=== PATIENT | female | born 1990 | race Caucasian/White ===

== ENCOUNTER 2016-07-15 04:06 | Inpatient (IN) | payer BC ==
[2016-07-15] VITALS (22 sets, daily range): BP systolic 103–135; BP diastolic 52–79; PULSE 78–101; TEMP 98.1–99.8
[~2016-07-15] VITALS: Ht 172.7 cm; Wt 95.5 kg
[2016-07-15] MEDS ORDERED: PRENATAL MVI (04:42)
[2016-07-15 07:17] LABS: BASO # 0.1 (0.0-0.2); BASO % 0.4 % (0.0-2.0); GRAN # 14.5 (1.4-6.5); GRAN % 88.3 % (42.2-75.2); LYMPH % 6.3 % (20.0-51.0); MEAN CELL VOLUME 87 fl (80.0-100.0); MEAN CORPUSCULAR HGB CONC 34 g/dl (33.0-37.0); MEAN PLATELET VOLUME 10.7 fl (7.4-10.4); MONO # 0.8 (0.1-0.6); MONO % 4.6 % (1.7-9.3); PLATELET COUNT 244 K/mm3 (130-400); RED BLOOD COUNT 3.64 M/mm3 (4.10-5.30); REDCELL DISTRIBUTION WIDTH-CV 12.6 % (11.5-14.5); WHITE BLOOD COUNT 16.4 K/mm3 (4.8-10.8)
[2016-07-15 07:25] LABS: HEMATOCRIT 31.6 % (37.0-47.0); HEMOGLOBIN 10.6 g/dl (12.5-16.0); MEAN CORPUSCULAR HEMOGLOBIN 29 pg (27.0-31.0)
[2016-07-15 08:05] LABS: PH 7 (5-8); SQUAMOUS EPITHELIAL 0-2 /hpf; URINE APPEARANCE Clear; URINE BACTERIA None Seen /hpf; URINE BILIRUBIN Negative (NEGATIVE); URINE BLOOD Negative (NEGATIVE); URINE COLOR Yellow; URINE GLUCOSE Negative (NEGATIVE); URINE KETONE Negative (NEGATIVE); URINE RBC 0-2 /hpf; URINE UROBILINOGEN Negative (NEGATIVE); URINE WBC 0-2 /hpf
[2016-07-16 02:00] VITALS: BP 102/53; PULSE 85; TEMP 99
[2016-07-16 07:25] VITALS: BP 110/73; PULSE 83; TEMP 97.9
[2016-07-16 07:42] LABS: BASO % 0.4 % (0.0-2.0); EOS % 0.4 % (0-4.0); GRAN # 7.7 (1.4-6.5); GRAN % 79.2 % (42.2-75.2); LYMPH # 1.5 (1.2-3.4); LYMPH % 15.6 % (20.0-51.0); MEAN CELL VOLUME 89 fl (80.0-100.0); MEAN CORPUSCULAR HGB CONC 33 g/dl (33.0-37.0); MONO # 0.4 (0.1-0.6); PLATELET COUNT 223 K/mm3 (130-400); RED BLOOD COUNT 3.34 M/mm3 (4.10-5.30); WHITE BLOOD COUNT 9.7 K/mm3 (4.8-10.8)
[2016-07-16 08:15] LABS: HEMATOCRIT 29.8 % (37.0-47.0); HEMOGLOBIN 9.7 g/dl (12.5-16.0); MEAN CORPUSCULAR HEMOGLOBIN 29 pg (27.0-31.0)
[2016-07-16 16:30] VITALS: BP 117/68; PULSE 83; TEMP 97.5
[2016-07-16 21:00] VITALS: BP 130/73; PULSE 79; TEMP 98.3
[2016-07-17 07:30] VITALS: BP 106/56; PULSE 73; TEMP 98.4
[2016-07-17] MEDS ORDERED: IBU800 M1 PO (08:40)
== END 2016-07-17 14:20 | disposition home or self-care (01) | DRG 775 ==
LOC: LDRO 04:06 → LDR 05:03 → OB 05:03
PROVIDERS: Student in an Organized Health Care Education/Training Program
PROC: 10E0XZZ Delivery of Products of Conception, External Approach (ICD-10-PCS; principal; 2016-07-15)
PROC: 0UQMXZZ Repair Vulva, External Approach (ICD-10-PCS; 2016-07-15)
PROC: 0HQ9XZZ Repair Perineum Skin, External Approach (ICD-10-PCS; 2016-07-15)
DX: O99.824 Streptococcus B carrier state complicating childbirth (principal); O26.843 Uterine size-date discrepancy, third trimester; O22.03 Varicose veins of lower extremity in pregnancy, third trimester; O69.81X0 Labor and delivery complicated by cord around neck, without compression, not applicable or unspecified; O71.82 Other specified trauma to perineum and vulva; O70.0 First degree perineal laceration during delivery; Z3A.37 37 weeks gestation of pregnancy; Z37.0 Single live birth
CPT/HCPCS: J2540; J2590; J2795; J7120

== ENCOUNTER → 2016-07-26 | Outpatient (CLI) | payer BC ==
[~2016-07-26] MED LIST: IBU800 M1 PO; PRENATAL MVI
== END ==
LOC: LAC 13:23 → LDRO 07-31 11:43
DX: Z39.1 Encounter for care and examination of lactating mother (principal); Z71.89 Other specified counseling

== ENCOUNTER 2018-06-01 03:40 | Inpatient (IN) | payer BC ==
[2018-06-01] VITALS (32 sets, daily range): BP systolic 94–134; BP diastolic 52–78; PULSE 69–111; TEMP 97.6–99
[~2018-06-01] VITALS: Ht 172.7 cm; Wt 94.5 kg
--- NOTE | 2018-06-01 03:45 | NUR ---
G2L1. 38-1. Pt to ambulatory to LDR 4 with spouse. Clean gown on. EFM and TOCO explained and applied. Pt states contractions are 5-6minutes apart for about an hour now. Pt states she has been having bloody show for the last day. Denies LOF. Reports good movement. SVE 3-4/80/-3, no bloody show noted to exam glove. Vital signs and assessment completed. Plan of care explained to pt and who verbalize understanding. Will continue to monitor.
[2018-06-01] MEDS ORDERED: TUMS500 MG PO (04:02)
[2018-06-01 06:49] LABS: BASO # 0.1 (0.0-0.2); BASO % 0.7 % (0.0-2.0); EOS # 0.3 (0.0-0.7); EOS % 2.8 % (0-4.0); GRAN # 7.8 (1.4-6.5); GRAN % 71.9 % (42.2-75.2); LYMPH % 18.2 % (20.0-51.0); MEAN CELL VOLUME 89 fl (80.0-100.0); MEAN CORPUSCULAR HEMOGLOBIN 30 pg (27.0-31.0); MEAN CORPUSCULAR HGB CONC 34 g/dl (33.0-37.0); MEAN PLATELET VOLUME 11.4 fl (7.4-10.4); MONO # 0.6 (0.1-0.6); MONO % 5.9 % (1.7-9.3); PLATELET COUNT 249 K/mm3 (130-400); RED BLOOD COUNT 4.01 M/mm3 (4.10-5.30); REDCELL DISTRIBUTION WIDTH-CV 12.1 % (11.5-14.5)
[2018-06-01 06:56] LABS: HEMATOCRIT 35.8 % (37.0-47.0)
--- NOTE | 2018-06-01 07:15 | NUR ---
0715- Pt request to have monitors off so she can ambulate around room. Pt tolerating UCs well. EFM and TOCO off at this time.
--- NOTE | 2018-06-01 09:09 | NUR ---
0909- Dr Hernández at bedside. SVE , AROM, clear fluid noted, no odor. Discussed plan of care, questions answered.
--- NOTE | 2018-06-01 10:00 | NUR ---
0939- Laura.CANDIE Samson at bedside for epidural placement. Pt assisted to sitting on side of bed. O2 sat monitor on and tracing. FHR not tracing due to maternal position. 0953- Test dose, see anesthesia record. 957- Sat probe off, Pt assisted to semi-fowlers with WL. EFM and TOCO adjusted and tracing. RN remains at bedside monitoring VS.
--- NOTE | 2018-06-01 12:13 | NUR ---
1207- Morales out without difficulty. 1208- Dr Hernández at bedside. Pt and room prepped for delivery. Arsen, Nursery RN at bedside. 1212- Pt pushes with UC. 1213- of viable female . Infant placed on mother's abd where dried and stimulated. Tended to by Nursery RN. Cord clamped and cut. Cord blood sample obtained. 1216- Spontaneous delivery of placenta, Pitocin started at 333mls/hr. Fundus massaged to firm by . Perineum intact. Pericare completed. Ice pack on. Clean chux under Pt. Pt repositioned to sitting upright in bed, baby [id number].
--- NOTE | 2018-06-01 15:15 | NUR ---
1515- Pt unable to lift right leg off bed. Straight cath by this RN, 700mls removed. Pericare completed. Peripad and underwear on. Gown changed. Pt tolerated well. 1520- Pt transfers into wheelchair independently using only right leg, RN standby. Pt taken to room. Transfers same way without difficulty. Pt and oriented to room. Call light within reach. Pt instructed to call before getting out of bed, Pt verbalizes understanding.
[2018-06-02 07:30] VITALS: BP 130/79; PULSE 88; TEMP 97.7
[2018-06-02] MEDS ORDERED: IBU600 MG PO (08:56)
[2018-06-02 11:10] VITALS: BP 116/67; PULSE 98; TEMP 98.8
--- NOTE | 2018-06-02 11:10 | NUR ---
Initial visit; Parents thanked Economics Faculty Member for offering congratulations and God's blessings for the of their twin girls.
--- NOTE | 2018-06-02 11:15 | NUR ---
Initial visit; Mom thanked for offering congratulations for the of her daughter. thanked her for choosing [facility].
== END 2018-06-02 15:20 | disposition home or self-care (01) | DRG 807 ==
LOC: LDRO 03:40 → OB 05:10 → LDR 05:10 → OB 15:20
PROVIDERS: Obstetrics & Gynecology; ADMIT Student in an Organized Health Care Education/Training Program
PROC: 10E0XZZ Delivery of Products of Conception, External Approach (ICD-10-PCS; principal; 2018-06-01)
DX: O76 Abnormality in fetal heart rate and rhythm complicating labor and delivery (principal); Z37.0 Single live birth; Z3A.38 38 weeks gestation of pregnancy; O87.4 Varicose veins of lower extremity in the puerperium; O99.824 Streptococcus B carrier state complicating childbirth
CPT/HCPCS: J2540; J2590; J7120

== ENCOUNTER → 2020-05-12 | Outpatient (CLI) | payer BC ==
[~2020-05-12] MED LIST changes: +IBU600 MG PO; +TUMS500 MG PO
== END ==
LOC: ZCOL.LAB 08:00
DX: Z20.828 Contact with and (suspected) exposure to other viral communicable diseases (principal)

== ENCOUNTER 2020-05-13 07:06 | Inpatient (IN) | payer BC ==
[2020-05-13] VITALS (35 sets, daily range): BP systolic 102–134; BP diastolic 53–93; PULSE 68–94; TEMP 97.5–99.2
[~2020-05-13] VITALS: Ht 172.7 cm; Wt 102.3 kg
--- NOTE | 2020-05-13 07:10 | NUR ---
Patient ambulatory to OB floor with at side, for induction of labor. Pt oriented to room and plan of care. Denies feeling many contractions, denies leaking of fluid, denies vaginal bleeding. EFM and TOCO applied, Cat I tracing obtained. IV initiation. Pt educated on pitocin for induction, agrees with plan. IV initiated, consents signed. Denies questions or concerns at this time. at bedside, call light and personal belongings within reach.
[2020-05-13 08:34] LABS: BASO # 0.1 (0.0-0.2); BASO % 0.6 % (0.0-2.0); EOS # 0.3 (0.0-0.7); EOS % 3.8 % (0-4.0); GRAN # 6.5 (1.4-6.5); GRAN % 72.9 % (42.2-75.2); HEMOGLOBIN 12.2 g/dl (12.5-16.0); LYMPH # 1.5 (1.2-3.4); LYMPH % 17.1 % (20.0-51.0); MEAN CELL VOLUME 89 fl (80.0-100.0); MEAN CORPUSCULAR HEMOGLOBIN 30 pg (27.0-31.0); MEAN CORPUSCULAR HGB CONC 34 g/dl (33.0-37.0); MEAN PLATELET VOLUME 11.2 fl (7.4-10.4); MONO # 0.5 (0.1-0.6); MONO % 5.3 % (1.7-9.3); PLATELET COUNT 250 K/mm3 (130-400); RED BLOOD COUNT 4.05 M/mm3 (4.10-5.30); REDCELL DISTRIBUTION WIDTH-CV 13.1 % (11.5-14.5)
[2020-05-13 08:36] LABS: HEMATOCRIT 36.1 % (37.0-47.0)
--- NOTE | 2020-05-13 10:15 | NUR ---
RN to bedside. Patient states contraction pain is 6/10, requesting epidural. Patient up to bathroom. Lauryn ELECTRICAL AND RADIO MOCK UP MECHANIC notified of request. Patient back to bed. Declines standing, to left tilt. supportive at bedside. Call light within reach.
--- NOTE | 2020-05-13 10:30 | NUR ---
to bedside. SVE /-2 per provider. Plan of care discussed. Questions answered. Call light within reach.
--- NOTE | 2020-05-13 11:05 | NUR ---
1050: Patient sitting up for epidural placement. Lauryn SCHREIBER at bedside. 1054: Lidocaine. 1057: Epidural Catheter. 1059: Test Dose given by Lauryn SCHREIBER, no adverse reactions noted. 1105: Patient repostioned to left tilt.
--- NOTE | 2020-05-13 11:25 | NUR ---
at bedside. SVE /-2, AROM of large amount of clear fluid noted at 1123. Patient still feeling pain with contractions. Will notify Lauryn SCHREIBER.
--- NOTE | 2020-05-13 12:00 | NUR ---
Patient comfortable with epidural. Morales catheter placed. SVE /-1. Patient repositioned to right tilt with peanut ball in place. Instructed to notify RN of pain, rectal pressure, or urge to push. Denies needs. Call light within reach.
--- NOTE | 2020-05-13 12:30 | NUR ---
Patient comfortable with epidural. SVE /-1 per this RN. Patient denies needs. Encouraged to rest.
--- NOTE | 2020-05-13 13:40 | NUR ---
1305: Patient calls out feeling pressure. SVE 7/100/0. Patient repositioned to sally position. 1310: SVE 8-9/100/0, patient reports increased pressure. 1320: SVE Complete/+2. Patient feeling pain and pressure with contractions, urge to push. Pitocin off. 1325: Morales dc'd. 400ml clear yellow urine noted. 1328: at bedside. 1331: Spontaneous vaginal delivery of viable female assisted by . care assumed by Sasha NUÑEZ at this time. 1335: Spontaneous vaginal delivery of placenta assisted by . Pitocin infusing at 333ml/hr per protocol. Fundus firm. Lochia scant, WNL. 1340: Recovery period started at this time. Fundus firm, lochia WNL.
[2020-05-14 00:50] VITALS: BP 112/68; PULSE 77; TEMP 97.5
[2020-05-14 05:12] VITALS: BP 124/74; PULSE 77; TEMP 97.6
[2020-05-14 09:09] VITALS: BP 119/73; PULSE 75; TEMP 98
--- NOTE | 2020-05-14 10:37 | NUR ---
Initial visit attempt; Patient out of room, Adult Basic Studies Teacher left card of congratulations and God's blessings for the of their daughter and information regarding the availability of spiritual care at [facility].
[2020-05-14 16:00] VITALS: BP 118/76; PULSE 76; TEMP 98.3
[2020-05-14 19:49] VITALS: BP 114/67; PULSE 78; TEMP 98
[2020-05-15 08:20] VITALS: BP 120/72; PULSE 83; TEMP 99.3
--- NOTE | 2020-05-15 13:42 | NUR ---
1150 DISCHARGE INSTRUCTIONS REVEIWED WITH PATIENT. PATIENT VERBALIZED UNDERSTANDING. PATIENT WILL NOTIFY THIS RN WHEN READY TO LEAVE. 1215 ALL PERSONAL BELONGINGS GATHERED FROM PATIENT ROOM. PATIENT LEFT AMBULATORY AND IN NO APPARENT DISTRESS. PATIENT ACCOMPANIED BY THIS SPOUSE AND THIS RN.
== END 2020-05-15 12:15 | disposition home or self-care (01) | DRG 807 ==
LOC: LDR 07:06 → OB 07:06
PROVIDERS: ADMIT Student in an Organized Health Care Education/Training Program
PROC: 10E0XZZ Delivery of Products of Conception, External Approach (ICD-10-PCS; principal; 2020-05-13)
PROC: 10907ZC Drainage of Amniotic Fluid, Therapeutic from Products of Conception, Via Natural or Artificial Opening (ICD-10-PCS; 2020-05-13)
PROC: 3E033VJ Introduction of Other Hormone into Peripheral Vein, Percutaneous Approach (ICD-10-PCS; 2020-05-13)
DX: O99.824 Streptococcus B carrier state complicating childbirth (principal); Z37.0 Single live birth; O99.214 Obesity complicating childbirth; E66.01 Morbid (severe) obesity due to excess calories; O87.4 Varicose veins of lower extremity in the puerperium; Z3A.39 39 weeks gestation of pregnancy; K21.9 Gastro-esophageal reflux disease without esophagitis; O99.62 Diseases of the digestive system complicating childbirth
CPT/HCPCS: J2540; J2590; J7120

== ENCOUNTER 2021-11-17 06:58 | Inpatient (IN) | payer BC ==
[~2021-11-17] VITALS: Ht 172.7 cm; Wt 100.5 kg
[2021-11-19] VITALS (32 sets, daily range): BP systolic 104–135; BP diastolic 55–80; PULSE 60–85; TEMP 98.1
--- NOTE | 2021-11-19 07:00 | NUR ---
0620- Pt arrives on unit ambulatory with for scheduled induction. Oriented to room. 0629- Pt into bed. EFM and TOCO on and tracing well. VSS. Assessments completed. 0646- IV start without difficulty, labs obtained.
[2021-11-19 07:05] LABS: BASO # 0.1 K/mm3 (0.0-0.2); BASO % 0.7 % (0.0-2.0); EOS # 0.2 K/mm3 (0.0-0.7); EOS % 3.2 % (0.0-4.0); GRAN # 4.8 K/mm3 (1.4-6.5); GRAN % 64.1 % (42.2-75.2); HEMOGLOBIN 11.3 g/dl (12.5-16.0); LYMPH # 1.9 K/mm3 (1.2-3.4); LYMPH % 24.9 % (20.0-51.0); MEAN CELL VOLUME 90 fl (80.0-100.0); MEAN CORPUSCULAR HEMOGLOBIN 30 pg (27-31); MEAN CORPUSCULAR HGB CONC 34 g/dl (33.0-37.0); MEAN PLATELET VOLUME 10.9 fl (7.4-10.4); MONO # 0.5 K/mm3 (0.1-0.6); MONO % 6.8 % (1.7-9.3); PLATELET COUNT 230 K/mm3 (130-400); RED BLOOD COUNT 3.75 M/mm3 (4.10-5.30); REDCELL DISTRIBUTION WIDTH-CV 12.9 % (11.5-14.5)
[2021-11-19 07:07] LABS: HEMATOCRIT 33.6 % (37.0-47.0)
--- NOTE | 2021-11-19 08:45 | NUR ---
0833- Pt up on BB, EFM adjusted.
--- NOTE | 2021-11-19 09:15 | NUR ---
0903- This RN at bedside. Pt requesting epidural. Pt up to void. 904- Dr Hernández called and updated on Pt status. TORB: Pt may have epidural now. CANDIE Ponce called and notified. 0916- Pt back to bed, EFM and TOCO on and tracing.
--- NOTE | 2021-11-19 09:30 | NUR ---
0923- Pt assisted to sitting on side of bed for epidural placemnt. Kris PHYSICIAN RECRUITER at bedside. O2 sat monitor on and tracing. EFM tracing well. 0929- Single shot, see anesthesia record. 0934- O2 sat monitor off. Pt assisted to semi-fowlers with WL. This RN remains at bedside.
--- NOTE | 2021-11-19 11:36 | NUR ---
1133- Dr Gutierrez at bedside. Pt and room prepped for delivery. Daniel Jennings, Nursery RN at bedside. 1136- Pt pushes x2, of viable male . Infant to mother's abd, tended to by Nursery RN. Cord clamped and cut after delayed cord clamping. 1139- Spontaneous delivery of placenta, Pitocin restarted at 333ml/hr. Fundus massaged to firm by MD. Perineum intact. Pericare completed. Moderate bleeding noted x2 episodes while MD at bedside. Fundus massaged easily to firm by this RN. MD does vaginal exam for clots. VORN for Methergine 0.2mg IM now. Clean chux placed under Pt and ice pack to perineum. Pt tolerated. well. 1148- Methergine given IM per order. Fundus firm, scant bleeding noted. Pt high fowlers with infant skin-2-skin.
--- NOTE | 2021-11-19 13:45 | NUR ---
1345- Pt ambulates well to bathroom. Voids without difficulty. Pericare provided and explained. Bleeding precautions given. Peripad and underwear on. Gown changed. Pt ambulates to room with standby assist. Oriented to room. Pt and into nursery to watch bath.
[2021-11-20 00:20] VITALS: BP 112/68; PULSE 79; TEMP 98.1
[2021-11-20 04:30] VITALS: BP 120/68; PULSE 77; TEMP 97.9
[2021-11-20 08:00] VITALS: BP 127/72; PULSE 88; TEMP 98.2
[2021-11-20] MEDS ORDERED: IBU800 M1 PO (09:00)
--- NOTE | 2021-11-20 10:39 | NUR ---
Initial visit; Patient thanked Director Of Strategic Marketing for looking in on her and meeting her son. Patient states she has three girls at home who are extremely happy to have a little brother. Director Of Strategic Marketing offered God's blessings and thanked mom for choosing our hospital, to which she stated how wonderful her stay has been.
== END 2021-11-20 15:15 | disposition home or self-care (01) | DRG 806 ==
LOC: LDR 11-18 06:57 → OB 11-19 06:17 → LDR 11-19 13:38 → OB 11-19 14:00
PROVIDERS: ADMIT Student in an Organized Health Care Education/Training Program
PROC: 10E0XZZ Delivery of Products of Conception, External Approach (ICD-10-PCS; principal; 2021-11-19)
PROC: 3E033VJ Introduction of Other Hormone into Peripheral Vein, Percutaneous Approach (ICD-10-PCS; 2021-11-19)
PROC: 10907ZC Drainage of Amniotic Fluid, Therapeutic from Products of Conception, Via Natural or Artificial Opening (ICD-10-PCS; 2021-11-19)
DX: O99.824 Streptococcus B carrier state complicating childbirth (principal); O98.52 Other viral diseases complicating childbirth; Z37.0 Single live birth; Z3A.39 39 weeks gestation of pregnancy; B02.9 Zoster without complications; O75.89 Other specified complications of labor and delivery; O69.81X0 Labor and delivery complicated by cord around neck, without compression, not applicable or unspecified; O87.4 Varicose veins of lower extremity in the puerperium; I83.90 Asymptomatic varicose veins of unspecified lower extremity; K21.9 Gastro-esophageal reflux disease without esophagitis; O99.62 Diseases of the digestive system complicating childbirth; Z23 Encounter for immunization; O99.214 Obesity complicating childbirth; E66.9 Obesity, unspecified
CPT/HCPCS: J2210; J2540; J2590; J2795; J7120

== ENCOUNTER 2021-11-23 14:07 | Emergency (ER) | payer BC, MEDICAID ==
[~2021-11-23] VITALS: Ht 172.7 cm; Wt 100.0 kg
[2021-11-23 14:20] VITALS: TEMP 98.2
[2021-11-23 15:32] VITALS: BP 135/75; PULSE 75
== END 2021-11-23 15:32 | disposition home or self-care (01) ==
LOC: COL.ER 14:07
DX: O99.891 Other specified diseases and conditions complicating pregnancy (principal); M79.89 Other specified soft tissue disorders
CPT/HCPCS: J1650

== ENCOUNTER → 2021-11-24 | Outpatient (CLI) | payer BC, MEDICAID | LOC: COL.VAS 08:08 | DX: R60.0 Localized edema (principal); M79.604 Pain in right leg ==